=== PATIENT | male | born 1945 | race Caucasian/White ===

== ENCOUNTER 2016-03-02 13:26 | Day surgery (SDC) | payer OTHER ==
[~2016-03-02] VITALS: Ht 157.5 cm; Wt 72.8 kg
[~2016-03-02 13:26] MED LIST: AMO500 PO; BENA40TA41 PO; CARV6.2579 PO; CHLO25TA13 PO; CLAR500T PO; FER325 PO; NIFE30TA2 PO; PANT40TA3 PO; SPIR25TA PO; TERA10CA42 PO
[2016-03-02 14:25] VITALS: Ht 157.5 cm; Wt 72.8 kg
[2016-03-02 14:39] VITALS: BP 136/70; PULSE 70; RESP 18
[2016-03-02] MEDS ORDERED: PROPOFOL 20 ML ONE (15:04)
[2016-03-02] MEDS ORDERED: FENTAnyl 50 MCG/ML VIAL ONE (15:04)
[2016-03-02 15:06] VITALS: BP 141/68; PULSE 78; RESP 18
[2016-03-02 16:10] VITALS: BP 134/79; PULSE 72; RESP 19
--- NOTE | 2016-03-02 19:01 | GILP ---
DATE OF PROCEDURE: 03/02/2016 PROCEDURE: Colonoscopy with snare polypectomy. BRIEF HISTORY AND INDICATIONS: The patient is being evaluated for colorectal cancer screening. PREMEDICATION: Monitored anesthesia care by anesthesiologist. SURGEON: Giuliano Miller MD. INSTRUMENT USED: Olympus colonoscope. PREPARATION: Adequate. TECHNIQUE: After informed consent, with the patient/relatives understanding the procedure, its indic ations potential risks and complications, including but not limited to: allergic reaction, bleeding, perforation, infection, missed lesions and after all pertinent questions were answered to the patie nt's satisfaction, the patient/relatives signed the witnessed informed consent. Following this, premedication was administered slowly IV push by under careful cardiovascular and re spiratory monitoring with pulse oximetry, automatic blood pressure and court monitor. Once the sedativ e effect was achieved, the patient was placed in the left lateral decubitus position, digital rectal examination was performed. The colonoscope was then introduced and advanced under visual control th roughout all segments of the colon including: the rectum, sigmoid, descending colon, splenic flexure , transverse colon, hepatic flexure, ascending colon and finally reaching the cecum which was clearl y identified by transillumination, finger indentation and the ileocecal valve. Careful examination o f the mucosa of the lower gastrointestinal tract both on insertion as well as withdrawal of the inst rument disclosed the following findings: Rectal Examination: There is an 8 mm polyp in the distal rectal area. The polyp was snared and retr ieved with withdrawal of the instrument. A 5 mm polyp was noted in the proximal rectum which was al so snared and retrieved on withdrawal of the instrument. The remainder of colonic mucosa shows no abnormalities with exception of moderate sized internal hem orrhoids. Colonic Mucosa: The mucosa of all segments of the colon appears within normal limits. There is no ev idence of inflammatory changes, diverticular formation, polyps or other neoplasms, vascular malforma tion, or any other abnormality. The instrument was then withdrawn, the patient tolerated the procedure well and was transferred out of the [facility]oscopy Suite awake and in good condition to continue recovery under observation. IMPRESSION: 1. An 8 mm distal rectal polyp snare and retrieved. 2. A 5 mm proximal rectal polyp snare and retrieved. 3. Moderate sized internal hemorrhoids. PLAN: The patient will follow up as an outpatient and a Hemoccult stool testing is recommended. [place] rveillance colonoscopy in 5 years is recommended. Pathology will be reviewed as soon as it is avail able. Dictated By: GIULIANO MURPHY Conf#: [id number] DID#: [id number]
== END 2016-03-02 16:16 | disposition home or self-care (01) ==
LOC: GIL 13:26
PROVIDERS: ATTEND Internal Medicine Gastroenterology
DX: Z12.11 Encounter for screening for malignant neoplasm of colon (principal); K62.1 Rectal polyp; K64.8 Other hemorrhoids; I10 Essential (primary) hypertension
CPT/HCPCS: 45385; 88305; J3010; Z7610